=== PATIENT | male | born 1950 | race Caucasian/White ===

== ENCOUNTER 2018-03-10 21:44 | Inpatient (IN) ==
[2018-03-10] MEDS ORDERED: Etomidate Inj 40 MG/20 ML Vial IV.PUSH ONE (21:45)
[2018-03-10] MEDS ORDERED: Succinylcholine Inj 200 MG/10 ML Vial ONE (21:46)
[2018-03-10] MEDS ORDERED: Etomidate Inj 20 MG/10 ML Ampul IV.PUSH ONE (21:57)
[2018-03-10] MEDS ORDERED: Succinylcholine Inj 100 MG/5 ML Syringe IV.PUSH ONE (21:57)
[2018-03-10] MEDS ORDERED: Sod Chloride 0.9% Inj 1,000 ML IV.SIG SCH (22:00)
[2018-03-10 22:11] LABS: ABG Base Excess 2.6 mmol/L (-2-2); ABG PCO2 59 mmHg (38-42); ABG PO2 552 mmHg (61-120)
[2018-03-10 22:17] LABS: Baso % (Auto) 0.8 % (0.0-2.0); Eos # (Auto) 0.3 th/mm3 (0.0-0.4); Eos % (Auto) 5.7 % (0.0-4.0); Hemoglobin 15.4 gm/dL (13.0-17.0); Lymph # (Auto) 2.3 th/mm3 (1.0-4.8); Lymph % (Auto) 37.4 % (9.0-44.0); Mean Corpuscular HGB Conc 32.7 % (32.0-36.0); Mean Corpuscular Volume 91.6 fL (80.0-100.0); Mean Platelet Volume 9.1 fL (7.0-11.0); Mono # (Auto) 0.5 th/mm3 (0.0-0.9); Mono % (Auto) 8.4 % (0.0-8.0); Neut # (Auto) 2.9 th/mm3 (1.8-7.7); Neut % (Auto) 47.7 % (16.0-70.0); Platelet Count 126 th/mm3 (150-450); Red Blood Count 5.13 mil/mm3 (4.50-5.90); Red Cell Distribution Width 13.6 % (11.6-17.2); White Blood Count 6.1 th/mm3 (4.0-11.0)
--- NOTE | 2018-03-10 22:18 | ED ---
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 (0.02-0.05) ng/mL Total Protein 6.4 (6.4-8.2) g/dL Albumin 3.1 L (3.4-5.0) g/dL Urine Color (Yellw/Straw) Urine Clarity (Clear) Urine pH (5.0-8.5) Ur Specific [place] (1.002-1.035) Urine Protein (Neg-Trace) mg/dL Urine Glucose (UA) (Negative) mg/dL Urine Ketones (Negative) mg/dL Urine Occult Blood (Negative) Urine Nitrate (Negative) Urine Bilirubin (Negative) Urine Urobilinogen (Less than 2) mg/dL Ur Leukocyte Esterase (Negative) Urine RBC (0-3) /hpf Urine WBC (0-5) /hpf Ur Squamous Epith Cells (0-5) /hpf Urine Bacteria (None) /hpf Urine Mucus (Occasional) /lpf Micro UA Comment Ur Microscopic Review Urine Culture Comments Nasal Screen MRSA (PCR) (Negative) Urine Opiates Screen (Neg) Ur Barbiturates Screen (Neg) Ur Amphetamines Screen (Neg) U Benzodiazepines Scrn (Neg) Urine Cocaine Screen (Neg) U Cannabinoids Screen (Neg) 03/12/18 03/12/18 03/12/18 Range/Units 10:00 13:26 18:47 WBC (4.0-11.0) th/mm3 RBC (4.50-5.90) mil/mm3 Hgb (13.0-17.0) gm/dL Hct (39.0-51.0) % MCV (80.0-100.0) fL MCH (27.0-34.0) pg MCHC (32.0-36.0) % RDW (11.6-17.2) % Plt Count (150-450) th/mm3 MPV (7.0-11.0) fL Neut % (Auto) (16.0-70.0) % Lymph % (Auto) (9.0-44.0) % Cochran % (Auto) (0.0-8.0) % Eos % (Auto) (0.0-4.0) % Baso % (Auto) (0.0-2.0) % Neut # (Auto) (1.8-7.7) th/mm3 Lymph # (Auto) (1.0-4.8) th/mm3 Cochran # (Auto) (0.0-0.9) th/mm3 Eos # (Auto) (0.0-0.4) th/mm3 Baso # (Auto) (0.0-0.2) th/mm3 WBC Differential Differential Comment PT (9.8-11.6) sec INR Ratio APTT (24.3-30.1) sec Puncture Site Right radial Patient Temperature 98.6 O2 Saturation 96 (90-100) % ABG pH 7.34 L (7.380-7.420) ABG pCO2 51 H* (38-42) mmHg ABG pO2 117 (61-120) mmHg ABG HCO3 27 H (22-26) mmol/L ABG O2 Content 20.3 H (12.0-20.0) Vol % ABG Base Excess 1.4 (-2-2) mmol/L ABG Methemoglobin 1.5 (0-2) % Cj Test Present Hemoglobin 14.9 (12.0-16.0) G/DL Carboxyhemoglobin 0.6 (0-4) % O2 Delivery Device Ventilator Vent Setting Cpap+5/ps+5 Inspired O2 40 % Critical Value Yes Sodium (136-145) meq/L Potassium (3.5-5.1) meq/L Chloride (98-107) meq/L Carbon Dioxide (21.0-32.0) meq/L Anion Gap (5-15) meq/L BUN (7-18) mg/dL Creatinine (0.60-1.30) mg/dL Estimated GFR (>89) mL/min POC Glucose 210 H 215 H (68-110) mg/dl Random Glucose (74-106) mg/dL Lactic Acid (0.4-2.0) mmol/L Calcium (8.5-10.1) mg/dL Phosphorus (2.5-4.9) mg/dL Magnesium (1.5-2.5) mg/dL Total Bilirubin (0.2-1.0) mg/dL AST (15-37) U/L ALT (12-78) U/L Alkaline Phosphatase (45-117) U/L Ammonia (11-32) mcmol/L Total Creatine Kinase (39-308) U/L Troponin I (0.02-0.05) ng/mL Total Protein (6.4-8.2) g/dL Albumin (3.4-5.0) g/dL Urine Color (Yellw/Straw) Urine Clarity (Clear) Urine pH (5.0-8.5) Ur Specific [place] (1.002-1.035) Urine Protein (Neg-Trace) mg/dL Urine Glucose (UA) (Negative) mg/dL Urine Ketones (Negative) mg/dL Urine Occult Blood (Negative) Urine Nitrate (Negative) Urine Bilirubin (Negative) Urine Urobilinogen (Less than 2) mg/dL Ur Leukocyte Esterase (Negative) Urine RBC (0-3) /hpf Urine WBC (0-5) /hpf Ur Squamous Epith Cells (0-5) /hpf Urine Bacteria (None) /hpf Urine Mucus (Occasional) /lpf Micro UA Comment Ur Microscopic Review Urine Culture Comments Nasal Screen MRSA (PCR) (Negative) Urine Opiates Screen (Neg) Ur Barbiturates Screen (Neg) Ur Amphetamines Screen (Neg) U Benzodiazepines Scrn (Neg) Urine Cocaine Screen (Neg) U Cannabinoids Screen (Neg) 03/12/18 Range/Units 23:39 WBC (4.0-11.0) th/mm3 RBC (4.50-5.90) mil/mm3 Hgb (13.0-17.0) gm/dL Hct (39.0-51.0) % MCV (80.0-100.0) fL MCH (27.0-34.0) pg MCHC (32.0-36.0) % RDW (11.6-17.2) % Plt Count (150-450) th/mm3 MPV (7.0-11.0) fL Neut % (Auto) (16.0-70.0) % Lymph % (Auto) (9.0-44.0) % Cochran % (Auto) (0.0-8.0) % Eos % (Auto) (0.0-4.0) % Baso % (Auto) (0.0-2.0) % Neut # (Auto) (1.8-7.7) th/mm3 Lymph # (Auto) (1.0-4.8) th/mm3 Co[place]ran # (Auto) (0.0-0.9) th/mm3 Eos # (Auto) (0.0-0.4) th/mm3 Baso # (Auto) (0.0-0.2) th/mm3 WBC Differential Differential Comment PT (9.8-11.6) sec INR Ratio APTT (24.3-30.1) sec Puncture Site Patient Temperature O2 Saturation (90-100) % ABG pH (7.380-7.420) ABG pCO2 (38-42) mmHg ABG pO2 (61-120) mmHg ABG HCO3 (22-26) mmol/L ABG O2 Content (12.0-20.0) Vol % ABG Base Excess (-2-2) mmol/L ABG Methemoglobin (0-2) % Cj Test Hemoglobin (12.0-16.0) G/DL Carboxyhemoglobin (0-4) % O2 Delivery Device Vent Setting Inspired O2 % Critical Value Sodium (136-145) meq/L Potassium (3.5-5.1) meq/L Chloride (98-107) meq/L Carbon Dioxide (21.0-32.0) meq/L Anion Gap (5-15) meq/L BUN (7-18) mg/dL Creatinine (0.60-1.30) mg/dL Estimated GFR (>89) mL/min POC Glucose 209 H (68-110) mg/dl Random Glucose (74-106) mg/dL Lactic Acid (0.4-2.0) mmol/L Calcium (8.5-10.1) mg/dL Phosphorus (2.5-4.9) mg/dL Magnesium (1.5-2.5) mg/dL Total Bilirubin (0.2-1.0) mg/dL AST (15-37) U/L ALT (12-78) U/L Alkaline Phosphatase (45-117) U/L Ammonia (11-32) mcmol/L Total Creatine Kinase (39-308) U/L Troponin I (0.02-0.05) ng/mL Total Protein (6.4-8.2) g/dL Albumin (3.4-5.0) g/dL Urine Color (Yellw/Straw) Urine Clarity (Clear) Urine pH (5.0-8.5) Ur Specific [place] (1.002-1.035) Urine Protein (Neg-Trace) mg/dL Urine Glucose (UA) (Negative) mg/dL Urine Ketones (Negative) mg/dL Urine Occult Blood (Negative) Urine Nitrate (Negative) Urine Bilirubin (Negative) Urine Urobilinogen (Less than 2) mg/dL Ur Leukocyte Esterase (Negative) Urine RBC (0-3) /hpf Urine WBC (0-5) /hpf Ur Squamous Epith Cells (0-5) /hpf Urine Bacteria (None) /hpf Urine Mucus (Occasional) /lpf Micro UA Comment Ur Microscopic Review Urine Culture Comments Nasal Screen MRSA (PCR) (Negative) Urine Opiates Screen (Neg) Ur Barbiturates Screen (Neg) Ur Amphetamines Screen (Neg) U Benzodiazepines Scrn (Neg) Urine Cocaine Screen (Neg) U Cannabinoids Screen (Neg) Imaging Data Radiologist's impression: Chest X-Ray 03/10/18 21:53 CONCLUSION: Endotracheal tube in good position. Mild basilar atelectasis. Head CT 03/10/18 21:57 CONCLUSION: 1. No acute intracranial abnormality. . Chest X-Ray 03/12/18 00:00 CONCLUSION: 1. Stable ETT and NGT. 2. Mild bibasilar airspace disease, presumably atelectasis. Chest X-Ray 03/13/18 05:00 CONCLUSION: Mild suspected atelectasis or consolidation at the right base. ECG Data Attestation: I personally reviewed and interpreted this ECG as follows: Interpretation: Twelve-lead EKG was reviewed by me. Normal sinus rhythm, left axis deviation questionable old inferior AK, interventricular conduction delay, first-degree AV block. Heart rate of 89 bpm per Discharge Plan Discharge Disposition Patient Disposition: 30 Still Patient Physicians Team ED Provider: Gila Jett Primary Care Provider: UNKNOWN, Attending Provider: Bk [place]amo Other Providers: Allan Cornell Status ED Status: Left Department Discharge Information Discharge Date/Time: 03/11/18 01:39
[2018-03-10 22:22] LABS: Bacteria,Urine Occasional /hpf; Bilirubin,Urine Negative (Negative); Clarity,Urine Clear (Clear); Color,Urine Straw (Yellw/Straw); Glucose,Urine (UA) 500 or Greater mg/dL (Negative); Leukocyte Esterase,Urine Negative (Negative); Mucus,Urine Few /lpf (Occasional); Nitrite,Urine Negative (Negative); Specific Gravity,Urine 1.003 (1.002-1.035); Squamous Epithelial Cell,Urine <1 /hpf (0-5)
[2018-03-10] MEDS: Propofol 1000 mg/100 ml Inj 1,000 MG/100 ML BOTTLE IV.CONT PRN (22:24)
[2018-03-10 22:29] LABS: Amphetamine Screen,Urine Neg (Neg); Barbiturate Screen,Urine Neg (Neg); Cannabinoid Screen,Urine Pos (Neg); Cocaine Screen,Urine Neg (Neg)
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
[2018-03-10 22:31] LABS: Albumin 3.3 g/dL (3.4-5.0); Anion Gap 8 meq/L (5-15); Aspartate Aminotransferase 20 U/L (15-37); Blood Urea Nitrogen 13 mg/dL (7-18); Calcium 8.2 mg/dL (8.5-10.1); Carbon Dioxide 31.1 meq/L (21.0-32.0); Chloride 92 meq/L (98-107); Glomerular Filtration Rate 44 mL/min (>89); Glucose,Random 289 mg/dL (74-106); Magnesium 1.8 mg/dL (1.5-2.5); Potassium 4.1 meq/L (3.5-5.1); Sodium 131 meq/L (136-145)
[2018-03-10 22:32] LABS: Alanine Aminotransferase 24 U/L (12-78)
[2018-03-10 22:35] LABS: Alkaline Phosphatase 150 U/L (45-117)
[2018-03-10 22:46] LABS: Opiate Screen,Urine Neg (Neg)
[2018-03-10] MEDS ORDERED: Lidocaine PF 1% Inj 30 ML Vial ONE (22:46)
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
[2018-03-10 23:05] LABS: ABG Base Excess 2.3 mmol/L (-2-2); ABG PCO2 51 mmHg (38-42); ABG PO2 579 mmHg (61-120)
[2018-03-10] MEDS ORDERED: Midazolam Inj 5 MG/ML 1 ML Vial ONE (23:14)
[2018-03-10] MEDS ORDERED: fentaNYL Citrate Inj 100 MCG/2 ML Ampul ONE (23:14)
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
[2018-03-11] MEDS ORDERED: Bisacodyl 10 MG Supp RECTAL PRN (00:28)
[2018-03-11] MEDS ORDERED: Morphine Inj 4 MG/ML Vial IV.PUSH PRN (00:28)
[2018-03-11] MEDS ORDERED: Acetaminophen 325 MG Tablet PO PRN (00:28)
[2018-03-11] MEDS ORDERED: Magnesium Oxide 400 MG Tablet PO PRN (01:10)
[2018-03-11] MEDS ORDERED: Sodium Phosphate Inj 30 MMOL in Sodium Chlor 0.9% Inj 250 ML IV.SIG PRN (01:10)
[2018-03-11] MEDS ORDERED: Magnesium Sulfate Inj 4 GM in Sodium Chlor 0.9% Inj 92 ML IV.SIG PRN (01:10)
[2018-03-11] MEDS ORDERED: Potassium Chlor 20 mEq Premix 20 MEQ/100 ML PIGGYBACK IV.SIG PRN ×2 (01:10)
[2018-03-11] MEDS ORDERED: Potassium Phosphate Inj 30 MMOL in Sodium Chlor 0.9% Inj 250 ML IV.SIG PRN (01:10)
[2018-03-11] MEDS ORDERED: Potassium Chlor 40 mEq Premix 40 MEQ/100 ML PIGGYBACK IV.SIG PRN ×2 (01:10)
[2018-03-11] MEDS ORDERED: Magnesium Sulfate Inj 2 GM in Sodium Chlor 0.9% Inj 96 ML IV.SIG PRN (01:10)
[2018-03-11] MEDS ORDERED: Potassium Phosphate 500 MG Soluble Tablet PO PRN ×2 (01:10)
[2018-03-11] MEDS ORDERED: Potassium Chloride 25 MEQ Effervescent Tablet PO PRN (01:10)
[2018-03-11] MEDS: Sod Chloride 0.9% Inj 1,000 ML IV.CONT SCH ×2 (01:16→12:34)
[2018-03-11] MEDS: Enoxaparin Inj 40 MG/0.4 ML Syringe SQ SCH ×2 (02:42→23:55)
[2018-03-11] MEDS: Oral Hygiene Kit OROPHARYNG SCH ×4 (03:27→23:55)
[2018-03-11] MEDS: Chlorhexidine Gluconate 2% 1 Pack (2 Cloths) TOPICAL SCH (03:27)
[2018-03-11] MEDS: Propofol 1000 mg/100 ml Inj 1,000 MG/100 ML BOTTLE IV.CONT PRN ×5 (03:27→21:13)
[2018-03-11] MEDS ORDERED: Chlorhexidine Gluconate 2% 1 Pack (2 Cloths) TOPICAL PRN (04:00)
[2018-03-11] MEDS ORDERED: Dextrose 50% in Water 50 ML Vial IV.PUSH PRN (04:52)
[2018-03-11] MEDS: Insulin NovoLOG Aspart Correctional Sugar Inj SQ SCH ×4 (05:38→23:55)
[2018-03-11 07:13] LABS: Baso % (Auto) 0.5 % (0.0-2.0); Eos # (Auto) 0.3 th/mm3 (0.0-0.4); Eos % (Auto) 3.7 % (0.0-4.0); Hematocrit 43.5 % (39.0-51.0); Hemoglobin 14.6 gm/dL (13.0-17.0); Lymph # (Auto) 1.3 th/mm3 (1.0-4.8); Lymph % (Auto) 18.5 % (9.0-44.0); Mean Corpuscular HGB Conc 33.6 % (32.0-36.0); Mean Corpuscular Hemoglobin 30.3 pg (27.0-34.0); Mean Corpuscular Volume 90.1 fL (80.0-100.0); Mean Platelet Volume 8.9 fL (7.0-11.0); Mono # (Auto) 0.5 th/mm3 (0.0-0.9); Mono % (Auto) 7.8 % (0.0-8.0); Neut # (Auto) 4.7 th/mm3 (1.8-7.7); Neut % (Auto) 69.5 % (16.0-70.0); Platelet Count 111 th/mm3 (150-450); Red Blood Count 4.82 mil/mm3 (4.50-5.90); Red Cell Distribution Width 13.6 % (11.6-17.2); White Blood Count 6.8 th/mm3 (4.0-11.0)
[2018-03-11 07:50] LABS: Alanine Aminotransferase 22 U/L (12-78); Alkaline Phosphatase 141 U/L (45-117); Anion Gap 9 meq/L (5-15); Aspartate Aminotransferase 18 U/L (15-37); Blood Urea Nitrogen 11 mg/dL (7-18); Calcium 7.8 mg/dL (8.5-10.1); Carbon Dioxide 26.1 meq/L (21.0-32.0); Chloride 101 meq/L (98-107); Glomerular Filtration Rate 56 mL/min (>89); Glucose,Random 210 mg/dL (74-106); Magnesium 1.6 mg/dL (1.5-2.5); Phosphorus 2.1 mg/dL (2.5-4.9); Potassium 3.3 meq/L (3.5-5.1); Sodium 136 meq/L (136-145); Total Protein 6.2 g/dL (6.4-8.2)
[2018-03-11] MEDS: Famotidine PF Inj 20 MG/2 ML Vial IV.PUSH SCH ×2 (08:17→20:03)
[2018-03-11] MEDS: Senna/Docusate Sodium 8.6/50 MG Tablet PO SCH ×2 (08:17→20:03)
[2018-03-11] MEDS: Chlorhexidine 0.12% Oral Kit 15 ML UDC OROPHARYNG SCH ×2 (08:18→20:03)
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
--- NOTE | 2018-03-11 21:57 | ECG ---
Date Performed: 03/11/2018 Time Performed: 09:04:27 PTAGE: 89 years EKG: SINUS BRADYCARDIA WITH FIRST DEGREE AV BLOCK WITH OCCASIONAL VENTRICULAR PREMATURE COMPLEXE S MARKED LEFT AXIS DEVIATION RIGHT BUNDLE BRANCH BLOCK ABNORMAL ECG PREVIOUS TRACING : 03/10/2018 21.53 Since the previous tracing, no significant change noted DOCTOR: Halle Ohara Interpretating Date/Time 03/11/2018 21:57:17
--- NOTE | 2018-03-11 22:17 | ECG ---
Date Performed: 03/10/2018 Time Performed: 21:53:25 PTAGE: 89 years EKG: Sinus rhythm WITH FIRST DEGREE AV BLOCK MARKED RIGHT AXIS DEVIATION RIGHT BUNDLE BRANCH BLOCK POSSIBLE ANTERIOR M YOCARDIAL INFARCTION INFERIOR MYOCARDIAL INFARCTION ABNORMAL ECG NO PREVIOUS TRACING DOCTOR: Halle Ohara Interpretating Date/Time 03/11/2018 22:15:06
[2018-03-12] MEDS: Sod Chloride 0.9% Inj 1,000 ML IV.CONT SCH ×2 (00:22→12:15)
[2018-03-12] MEDS: Propofol 1000 mg/100 ml Inj 1,000 MG/100 ML BOTTLE IV.CONT PRN ×2 (01:00→04:00)
[2018-03-12] MEDS: Chlorhexidine Gluconate 2% 1 Pack (2 Cloths) TOPICAL SCH (03:04)
[2018-03-12] MEDS: Oral Hygiene Kit OROPHARYNG SCH ×4 (03:04→23:13)
[2018-03-12 04:52] LABS: Baso % (Auto) 0.4 % (0.0-2.0); Eos # (Auto) 0.2 th/mm3 (0.0-0.4); Eos % (Auto) 2.9 % (0.0-4.0); Hemoglobin 15.2 gm/dL (13.0-17.0); Lymph # (Auto) 0.8 th/mm3 (1.0-4.8); Mean Corpuscular HGB Conc 33.1 % (32.0-36.0); Mean Corpuscular Hemoglobin 29.9 pg (27.0-34.0); Mean Corpuscular Volume 90.5 fL (80.0-100.0); Mean Platelet Volume 9.6 fL (7.0-11.0); Mono # (Auto) 0.5 th/mm3 (0.0-0.9); Mono % (Auto) 7.1 % (0.0-8.0); Neut # (Auto) 5.8 th/mm3 (1.8-7.7); Neut % (Auto) 78.6 % (16.0-70.0); Platelet Count 122 th/mm3 (150-450); Red Blood Count 5.08 mil/mm3 (4.50-5.90); Red Cell Distribution Width 13.7 % (11.6-17.2); White Blood Count 7.4 th/mm3 (4.0-11.0)
[2018-03-12 05:04] LABS: Activated Partial Thrombo Time 36.5 sec (24.3-30.1); Prothrombin Time 10.2 sec (9.8-11.6)
[2018-03-12 05:18] LABS: Alanine Aminotransferase 21 U/L (12-78); Albumin 3.1 g/dL (3.4-5.0); Anion Gap 8 meq/L (5-15); Aspartate Aminotransferase 32 U/L (15-37); Blood Urea Nitrogen 8 mg/dL (7-18); Calcium 7.8 mg/dL (8.5-10.1); Carbon Dioxide 25.9 meq/L (21.0-32.0); Chloride 104 meq/L (98-107); Glomerular Filtration Rate 60 mL/min (>89); Glucose,Random 233 mg/dL (74-106); Magnesium 1.9 mg/dL (1.5-2.5); Sodium 138 meq/L (136-145)
[2018-03-12 05:23] LABS: Alkaline Phosphatase 164 U/L (45-117); Phosphorus 2.2 mg/dL (2.5-4.9); Total Protein 6.4 g/dL (6.4-8.2)
[2018-03-12] MEDS: Insulin NovoLOG Aspart Correctional Sugar Inj SQ SCH ×4 (05:23→23:41)
[2018-03-12] MEDS ORDERED: Sodium Glycerophosphate Inj 30 MMOL in Sodium Chlor 0.9% Inj 250 ML IV.SIG PRN (06:45)
--- NOTE | 2018-03-12 07:58 | XR ---
EXAM DATE: 03/12/2018 12:00 AM EDT AGE/SEX: 89 years / Male INDICATIONS: Respiratory distress. CLINICAL DATA: This is the patient's subsequent encounter. Patient reports that signs and symptoms h ave been present for 2 days and indicates a pain score of Nonresponsive. MEDICAL/SURGICAL HISTORY: Non-responsive. Non-responsive. COMPARISON: C, CHEST 1V SINGLE AP, 03/10/2018. . FINDINGS: Stable ETT and NGT coursing beyond the GE junction with tip obscured from the image. Persistent mild bibasilar airspace disease. Cardiomediastinal contours are within normal limits. Remainder of the exa m is unchanged. CONCLUSION: 1. Stable ETT and NGT. 2. Mild bibasilar airspace disease, presumably atelectasis. Electronically signed by: Phoenix Gordon MD 03/12/2018 7:57 AM EDT
[2018-03-12] MEDS: Famotidine PF Inj 20 MG/2 ML Vial IV.PUSH SCH ×2 (10:22→20:17)
[2018-03-12] MEDS: Senna/Docusate Sodium 8.6/50 MG Tablet PO SCH ×2 (10:25→20:18)
[2018-03-12] MEDS: Chlorhexidine 0.12% Oral Kit 15 ML UDC OROPHARYNG SCH ×2 (10:25→20:04)
[2018-03-12] MEDS ORDERED: Labetalol HCl Inj 100 MG/20 ML Vial ONE (12:24)
[2018-03-12 13:26] LABS: ABG Base Excess 1.4 mmol/L (-2-2); ABG PCO2 51 mmHg (38-42); ABG PO2 117 mmHG (61-120)
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
[2018-03-12] MEDS: clonazePAM 0.5 MG Tablet PO PRN (14:53)
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
[2018-03-12] MEDS: Enoxaparin Inj 40 MG/0.4 ML Syringe SQ SCH (23:41)
[2018-03-13] MEDS: Chlorhexidine Gluconate 2% 1 Pack (2 Cloths) TOPICAL SCH (03:24)
[2018-03-13] MEDS: Oral Hygiene Kit OROPHARYNG SCH ×3 (03:24→17:27)
--- NOTE | 2018-03-13 04:54 | XR ---
EXAM DATE: 03/13/2018 5:00 AM EDT AGE/SEX: 67 years / Male INDICATIONS: Short of breath. CLINICAL DATA: This is the patient's subsequent encounter. Patient reports that signs and symptoms h ave been present for 3 days and indicates a pain score of 0/10. MEDICAL/SURGICAL HISTORY: Non-responsive. Non-responsive. COMPARISON: [facility] [place], CHEST 1V SINGLE AP, 03/12/2018. . FINDINGS: The heart size is normal. There is mild increased density at the medial right base. The left lung roopa ears clear. The costophrenic angles are clear. CONCLUSION: Mild suspected atelectasis or consolidation at the right base. Electronically signed by: Jacob Dunn MD 03/13/2018 4:53 AM EDT
[2018-03-13] MEDS: Insulin NovoLOG Aspart Correctional Sugar Inj SQ SCH ×3 (05:54→17:38)
[2018-03-13] MEDS: Sod Chloride 0.9% Inj 1,000 ML IV.CONT SCH ×2 (05:54→12:25)
[2018-03-13] MEDS: Chlorhexidine 0.12% Oral Kit 15 ML UDC OROPHARYNG SCH ×2 (08:25→20:11)
[2018-03-13] MEDS: Senna/Docusate Sodium 8.6/50 MG Tablet PO SCH ×2 (08:25→20:12)
[2018-03-13] MEDS: Famotidine PF Inj 20 MG/2 ML Vial IV.PUSH SCH (08:26)
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
[2018-03-13] MEDS ORDERED: Sod Chloride 0.9% Inj 1,000 ML IV.CONT SCH (19:00)
[2018-03-13] MEDS: amLODIPine 10 MG Tablet PO SCH (20:11)
[2018-03-14] MEDS: Enoxaparin Inj 40 MG/0.4 ML Syringe SQ SCH (00:19)
[2018-03-14] MEDS: Insulin NovoLOG Aspart Correctional Sugar Inj SQ SCH ×4 (00:19→17:48)
[2018-03-14] MEDS: Oral Hygiene Kit OROPHARYNG SCH ×4 (00:19→17:46)
[2018-03-14] MEDS: Chlorhexidine Gluconate 2% 1 Pack (2 Cloths) TOPICAL SCH (05:20)
[2018-03-14] MEDS: Chlorhexidine 0.12% Oral Kit 15 ML UDC OROPHARYNG SCH ×2 (08:10→20:44)
[2018-03-14] MEDS: Senna/Docusate Sodium 8.6/50 MG Tablet PO SCH ×2 (08:37→20:44)
[2018-03-14] MEDS: amLODIPine 10 MG Tablet PO SCH (08:37)
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
--- NOTE | 2018-03-14 10:58 | CT ---
EXAM DATE: 03/14/2018 9:04 AM EDT AGE/SEX: 67 years / Male INDICATIONS: Unequal pupils, bleed. CLINICAL DATA: This is the patient's initial encounter. Patient reports that signs and symptoms have been present for 1 day and indicates a pain score of 0/10. MEDICAL/SURGICAL HISTORY: Hypertension. Cardiovascular disease. None. RADIATION DOSE: 35.94 CTDI (mGy) COMPARISON: [facility] – [place], CT HEAD W/O CONTRAST, 03/10/2018. . TECHNIQUE: CT of the head without contrast. Using automated exposure control and adjustment of the mA and/or kV according to patient size, radiation dose was kept as low as reasonably achievable to ob tain optimal diagnostic quality images. DICOM format image data is available electronically for revi ew and comparison. FINDINGS: Cerebrum: The ventricles are normal for age. There is stable bilateral cortical atrophy. No evidence of midline shift, mass lesion, hemorrhage or acute infarction. No extraaxial fluid collections are seen. Posterior Fossa: The cerebellum and brainstem are intact. The 4th ventricle is midline. The cerebe llopontine angle is unremarkable. Extracranial: The visualized portion of the orbits is intact. There is an air-fluid level in the lef t sphenoid sinus and left maxillary sinus. Skull: The calvaria is intact. No evidence of skull fracture. CONCLUSION: 1. Unremarkable and stable CT scan of the brain for patient's age compared to the prior study. 2. Air-fluid level in the left sphenoid sinus and left maxillary sinus suggestive of sinus disease. . Electronically signed by: Eleazar Cortes MD 03/14/2018 10:57 AM EDT
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
--- NOTE | 2018-03-14 11:13 | CT ---
EXAM DATE: 03/14/2018 10:15 AM EDT AGE/SEX: 67 years / Male INDICATIONS: Unequal pupils, bleed. CLINICAL DATA: This is the patient's initial encounter. Patient reports that signs and symptoms have been present for 1 day and indicates a pain score of 0/10. MEDICAL/SURGICAL HISTORY: Cardiovascular disease. Hypertension. None. RADIATION DOSE: 28.34 CTDI (mGy) ; Combined studies COMPARISON: No prior exams available for comparison. TECHNIQUE: Volumetric scanning was performed using a multirow detector CT scanner during bolus infus ion of 100 ml Omnipaque 350 (iohexol) nonionic water-soluble contrast as a cumulative dose for multi ple exams. The data was postprocessed with a variety of visualization algorithms including full-vol ume maximum intensity projection, multiplanar sliding thin-slab reformation, curved-planar reformatio n, and surface-rendering techniques. Using automated exposure control and adjustment of the mA and/o r kV according to patient size, radiation dose was kept as low as reasonably achievable to obtain opt imal diagnostic quality images. DICOM format image data is available electronically for review and c omparison. Percent stenosis is calculated using the diameter of the stenotic region over the diameter of the nor mal distal internal carotid artery. FINDINGS: Aortic Arch: There is a three-vessel origin of the great vessels from the aorta. Atherosclerotic mouna cifications extending from the arch to the origin of the arch vessels without significant flow-limiti ng stenosis. Right Carotid: The common carotid artery is intact. Eccentric calcified plaque extending from the d istal carotid bulb to the origin of the internal carotid artery with resultant less than 10% stenosis . Internal carotid artery is otherwise patent to the skull base. The external carotid artery is intac t. Left Carotid: The common carotid artery is intact. Eccentric calcified plaque extending from the javier y distal carotid bulb to the origin of the internal carotid artery with resultant 45-50% stenosis. Se cond eccentric calcified plaque slightly more distally in the proximal internal carotid artery with r esultant tandem up to 20% stenosis. Internal carotid arteries otherwise patent to the skull base. The external carotid artery is intact. Vertebrals: The vertebral arteries have a symmetric diameter. No stenotic lesions are seen. General Findings: Mild centrilobular emphysema in the lung apices. Thyroid is unremarkable by CT. No significant adenopathy. CONCLUSION: 1. Less than 10% stenosis of the right internal carotid artery secondary to eccentric calcified plaq ue. 2. Tandem 45-50% and up to 20% stenosis of the left internal carotid artery secondary to eccentric c alcified plaque. 3. Patent bilateral vertebral arteries. Electronically signed by: Phoenix Gordon MD 03/14/2018 11:11 AM EDT
[2018-03-14] MEDS ORDERED: Promethazine/Codeine Liq 6.25 MG/10 MG 5 ML UDC PO ONE (11:30)
[2018-03-14 12:45] LABS: Calcium 8.6 mg/dL (8.5-10.1); Carbon Dioxide 30.8 meq/L (21.0-32.0); Potassium 3.1 meq/L (3.5-5.1)
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
--- NOTE | 2018-03-14 20:14 | MR ---
EXAM DATE: 03/14/2018 7:11 PM EDT AGE/SEX: 67 years / Male INDICATIONS: CVA. Vision changes. CLINICAL DATA: This is the patient's subsequent encounter. Patient reports that signs and symptoms h ave been present for 4 - 6 days and indicates a pain score of 0/10. MEDICAL/SURGICAL HISTORY: Hypertension. Diabetes. Coronary artery stent. Bilateral shoulder dunn rgery. Bilateral knee surgery. COMPARISON: No prior exams available for comparison. TECHNIQUE: Multiplanar, multisequence examination of the brain was performed without contrast. FINDINGS: There is no intracranial mass or midline shift. No hydrocephalus. No recent infarction identified on the diffusion weighted images. There is an air-fluid level in the septated left sphenoid sinus characteristic of sphenoid sinusitis. Also trace fluid in the left maxillary sinus. CONCLUSION: 1. No acute intracranial abnormalities. No recent infarct. 2. Left-sided sphenoid and maxillary sinusitis. Electronically signed by: Kelechi Millard MD 03/14/2018 8:13 PM EDT
--- NOTE | 2018-03-14 20:53 | MR ---
EXAM DATE: 03/14/2018 7:11 PM EDT AGE/SEX: 67 years / Male INDICATIONS: . Abnormal gait. CLINICAL DATA: This is the patient's subsequent encounter. Patient reports that signs and symptoms h ave been present for 4 - 6 days and indicates a pain score of 3/10. MEDICAL/SURGICAL HISTORY: Hypertension. Diabetes. Coronary artery stent. Bilateral shoulder dunn rgery. Bilateral knee surgery. COMPARISON: No prior exams available for comparison. TECHNIQUE: Multiplanar, multisequence MRI examination of the cervical spine was performed without co ntrast. FINDINGS: At C2-3-4 there is no significant abnormality. At C4-5 there is a broad-based disc protrusion with mild AP canal stenosis and mild bilateral foramin al stenosis. At C5-6-7 there is posterior osteophytic ridging with partial effacement of the thecal sac around the cord. At C7-T1 there is no significant abnormality. CONCLUSION: 1. At C4-5 a broad-based disc protrusion results in mild AP canal stenosis and effacement of the the mouna sac around the cord with a mild impression on the anterior surface of the cord. 2. At C5-6-7 there is degenerative change with some osteophytic ridging effacing the thecal sac. 3. Alignment within normal limits. No acute fracture. No cord signal abnormality. Electronically signed by: Kelechi Millard MD 03/14/2018 8:51 PM EDT
[2018-03-14] MEDS: clonazePAM 0.5 MG Tablet PO PRN (20:56)
[2018-03-15] MEDS: Insulin NovoLOG Aspart Correctional Sugar Inj SQ SCH ×4 (00:16→18:48)
[2018-03-15] MEDS: Oral Hygiene Kit OROPHARYNG SCH ×4 (00:16→18:23)
[2018-03-15] MEDS: Chlorhexidine Gluconate 2% 1 Pack (2 Cloths) TOPICAL SCH (03:42)
[2018-03-15] MEDS: amLODIPine 10 MG Tablet PO SCH (10:17)
[2018-03-15] MEDS: Chlorhexidine 0.12% Oral Kit 15 ML UDC OROPHARYNG SCH ×2 (10:18→22:42)
[2018-03-15] MEDS: Lisinopril 5 MG Tablet PO SCH (10:19)
[2018-03-15] MEDS: Senna/Docusate Sodium 8.6/50 MG Tablet PO SCH ×2 (10:19→20:56)
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
--- NOTE | 2018-03-15 14:42 | XR ---
EXAM DATE: 03/15/2018 2:32 PM EDT AGE/SEX: 67 years / Male INDICATIONS: Short of breath. CLINICAL DATA: This is the patient's initial encounter. Patient reports that signs and symptoms have been present for 4 - 6 days and indicates a pain score of 0/10. MEDICAL/SURGICAL HISTORY: Cardiovascular disease. Hypertension. Chronic obstructive pulmonary disease. copd None. COMPARISON: [facility] [place], CHEST 1V SINGLE AP, 03/13/2018. . FINDINGS: A single AP view of the chest demonstrates the lungs to be symmetrically aerated without evidence of mass, infiltrate or effusion. The cardiomediastinal contours are unremarkable. Osseous structures a re intact. CONCLUSION: No acute cardiopulmonary process. Electronically signed by: Delroy Mercedes MD 03/15/2018 2:41 PM EDT
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
[2018-03-15 15:46] LABS: Calcium 8.4 mg/dL (8.5-10.1); Carbon Dioxide 25.1 meq/L (21.0-32.0)
--- NOTE | 2018-03-15 18:43 | P.PNNEU ---
Subjective Subjective Comments: no matta, no vision loss, no cp, no dyspnea Active Medications: Active Medications Acetaminophen (Tylenol) 650 mg PO Q6H PRN PRN Reason: PAIN 1-10 AND/OR FEVER >101F Hydrocodone Bitart/Acetaminophen ([place] 5/325) 1 tab PO Q6H PRN PRN Reason: PAIN SCALE 1 TO 5 Last Admin: 03/15/18 12:21 Dose: 1 tab Al Hydroxide/Mg Hydroxide (Milk Of Magnginger Liq) 30 ml PO Q12H PRN PRN Reason: Mild Constipation Albuterol (Duoneb Neb (Prn)) 1 ampul NEB Q2HR NEB PRN PRN Reason: WHEEZING Last Admin: 03/15/18 10:37 Dose: 1 ampul Albuterol (Duoneb Neb (Laurie)) 1 ampul NEB Q6HR NEB LAURIE Last Admin: 03/15/18 16:04 Dose: Not Given Amlodipine Besylate (Norvasc) 10 mg PO DAILY [facility] Last Admin: 03/15/18 10:17 Dose: 10 mg Atorvastatin Calcium (Lipitor) 40 mg PO HS [facility] Last Admin: 03/14/18 20:44 Dose: 40 mg Bisacodyl (Dulcolax Supp) 10 mg RECTAL DAILY PRN PRN Reason: SEVERE CONSITIPATION Budesonide/Formoterol Fumarate (Symbicort 160/4.5 Mcg Inh) 2 puff INH BID [facility] Chlorhexidine Gluconate (Chlorhexidine 2% Cloth) 3 pack TOPICAL DAILY@0400 [facility] Stop: 03/16/18 03:59 Last Admin: 03/15/18 03:42 Dose: Not Given Chlorhexidine Gluconate (Chlorhexidine 2% Cloth) 3 pack TOPICAL DAILY@0400 PRN PRN Reason: Extra cloth needed Stop: 03/16/18 03:59 Chlorhexidine Gluconate (Peridex 0.12% Oral Kit) 15 ml OROPHARYNG BID@0800, 2000 [facility] Last Admin: 03/15/18 10:18 Dose: Not Given Clonazepam (Klonopin) 0.5 mg PO Q12H PRN PRN Reason: ANXIETY Last Admin: 03/14/18 20:56 Dose: 0.5 mg Dextrose (D50w Vial) 50 ml IV.PUSH UNSCH PRN PRN Reason: PER HYPOGLYCEMIA PROTOCOL Enalaprilat (Vasotec Inj) 2.5 mg IV.PUSH Q6H PRN PRN Reason: SBP>160, DBP>90 Last Admin: 03/14/18 00:19 Dose: 2.5 mg Enoxaparin Sodium (Lovenox Inj) 40 mg SQ Q24H [facility] Last Admin: 03/14/18 00:19 Dose: 40 mg Glucagon (Glucagon Inj) 1 mg OTHER PRN PRN PRN Reason: for Hypoglycemia Protocol Sodium Chloride (Ns Inj) 1,000 mls @ 0 mls/hr IV.SIG BOLUS [facility] Last Infusion: 03/11/18 00:49 Dose: Infused Propofol (Diprivan 1000 Mg/100 Ml Inj) 1,000 mg in 100 mls @ 1.361 mls/hr IV.CONT TITRATE PRN; Protocol PRN Reason: Per Protocol Last Titration: 03/12/18 19:00 Dose: Infused Sodium Glycerophosphate 30 (mmol/ Sodium Chloride) 280 mls @ 42 mls/hr IV.SIG UNSCH PRN PRN Reason: For Phosphorus < 2.5 mg/dL Last Infusion: 03/12/18 14:22 Dose: Infused Potassium Chloride 20 meq/Magnesium Sulfate 2 gm/Dextrose/Sodium Chloride 1, 014 mls @ 500 mls/hr IV.SIG ONCE ONE Stop: 03/15/18 22:01 Insulin Aspart (Novolog Insulin Correctional Sugar Inj) 0 unit SQ Q6HR [facility]; Protocol Last Admin: 03/15/18 12:22 Dose: 2 unit Lactulose (Lactulose Liq) 30 ml PO DAILY PRN PRN Reason: SEVERE CONSITIPATION Lisinopril (Prinivil) 5 mg PO DAILY [facility] Last Admin: 03/15/18 10:19 Dose: 5 mg Miscellaneous Medication () 1 each OROPHARYNG 0000,0400,1200,1600 [facility] Last Admin: 03/15/18 18:23 Dose: Not Given Nicotine (Habitrol 14 Mg Patch.24 Hr) 1 patch T-DERMAL DAILY [facility] Last Admin: 03/15/18 10:17 Dose: 1 patch Ondansetron HCl (Zofran Inj) 4 mg IV.PUSH Q6H PRN PRN Reason: nausea/vomiting Pantoprazole Sodium (Protonix) 40 mg PO DAILY [facility] Last Admin: 03/15/18 10:17 Dose: 40 mg Patch Removal (Remove Old Patch) 1 each T-DERMAL Q7D [facility] Patch Removal (Remove Old Patch) 1 each T-DERMAL HS [facility] Last Admin: 03/14/18 20:45 Dose: Not Given Potassium Chloride (Klor-Con 10) 30 meq PO BID [facility] Senna/Docusate Sodium (Denia-Colace) 1 tab PO BID [facility] Last Admin: 03/15/18 10:19 Dose: Not Given Sennosides (Senokot) 17.2 mg PO Q12H PRN PRN Reason: Moderate Constipation Sodium Chloride (Ns Flush) 2 ml IV.FLUSH BID LAURIE Last Admin: 03/15/18 10:18 Dose: 2 ml Sodium Chloride (Ns Flush) 2 ml IV.FLUSH PRN PRN PRN Reason: FLUSH AFTER USING IV ACCESS Last Admin: 03/11/18 08:18 Dose: 2 ml Allergies/Adverse Reactions: Allergies Allergy/AdvReac Type Severity Reaction Status Date / Time No Known Allergies Allergy Unverified 03/10/18 21:53 Review of Systems All other systems reviewed negative except as stated in HPI Physical Exam Vital signs: Vital Signs 03/14/18 20:00 03/15/18 00:00 03/15/18 00:57 Temperature 97.6 F 97.9 F Pulse Rate 107 H 131 H 113 H Respiratory Rate 20 20 Blood Pressure 141/94 H 148/97 H Pulse Oximetry 91 L 94 L 03/15/18 04:00 03/15/18 04:26 03/15/18 08:00 Temperature 97.9 F 97.0 F L Pulse Rate 106 H 105 H 103 H Respiratory Rate 18 18 Blood Pressure 157/78 H 130/64 Pulse Oximetry 96 98 03/15/18 10:38 03/15/18 12:00 03/15/18 13:41 Temperature 97.1 F L Pulse Rate 115 H 110 H 86 Respiratory Rate 18 18 16 Blood Pressure 157/72 H Pulse Oximetry 96 03/15/18 13:51 03/15/18 16:00 Temperature 97.6 F Pulse Rate 101 H Respiratory Rate 18 Blood Pressure 143/72 H Pulse Oximetry 99 95 Intake & Output 03/14/18 03/15/18 03/15/18 18:59 06:59 18:59 Intake Total 600 / 600 480 / 480 960 / 960 Output Total 400 / 400 600 / 600 250 / 250 Balance 200 / 200 -120 / -120 710 / 710 Weight 85.6 kg 84.6 kg Intake: Oral 600 / 600 480 / 480 960 / 960 Output: Urine 400 / 400 600 / 600 250 / 250 Other: # Voids 3 Date of Last Bowel Movement 03/14/18 03/15/18 03/15/18 # Bowel Movements 2 0 2 Narrative: GENERAL: in NAD, SKIN: Warm and dry. HEAD: Atraumatic. Normocephalic. EYES: Pupils equal and round. No scleral icterus. ENT: No nasal bleeding or discharge. NECK: Trachea midline. No JVD. CARDIOVASCULAR: Regular rate and rhythm. RESPIRATORY: No accessory muscle use. GASTROINTESTINAL: Abdomen soft, non-tender, nondistended. MUSCULOSKELETAL: Extremities without clubbing, cyanosis, or edema. No obvious deformities. NEUROLOGICAL: Awake alert oriented x3 no aphasia, no ptosis noted. No facial asymmetry. Visual gonzalez full. Bilateral opacities noted on pupillary examination. Asymmetric pupils with greater than 1 mm difference, no temporal tenderness, strength 5 5 upper lower limbs no pronator drift, gait not assessed secondary to fall risk PSYCHIATRIC: Calm - Constitutional no acute distress - Routine HEENT Exam Head: Present: normocephalic - Urinary Catheter Management Indwelling Urethral Catheter Cath placed during this visit: yes Reason for continuing: Other continuation reason Insertion date: 03/10/18 Insertion time: 22:01 Objective Laboratory Results - last 24 hr 03/15/18 03/15/18 03/15/18 00:16 04:43 11:45 Sodium Potassium Chloride Carbon Dioxide Anion Gap BUN Creatinine Estimated GFR POC Glucose 149 H 157 H 172 H Random Glucose Calcium 03/15/18 03/15/18 14:24 18:28 Sodium 136 Potassium 3.0 L Chloride 95 L Carbon Dioxide 25.1 Anion Gap 16 H BUN 23 H Creatinine 1.13 Estimated GFR 65 L POC Glucose 147 H Random Glucose 129 H Calcium 8.4 L Review/Management - Diagnosis (1) Acute encephalopathy Code(s): G93.40 - Encephalopathy, unspecified Status: Acute Current Visit: Yes - Review/Management Plan: Anisocoria. May be physiologic/ congenital vs related to toxicity to the autonomic nervous system. no evidence of aneurysm or ptosis on exam Recommendation mri cspine reviewed- avoid excessive neck extension/flexion, heavy lifting above shoulders, myelopathic signs to watch for mri brain- negative p.t. follow exam
[2018-03-15] MEDS: Budesonide-Formoterol 160/4.5 MCG 6 GM Inhaler INH SCH ×2 (18:44→20:57)
[2018-03-15] MEDS ORDERED: Potassium Chloride Inj 20 MEQ, Magnesium Sulfate Inj 2 GM in Dextrose 5%/NaCl 0.45% Inj... IV.SIG ONE (20:00)
[2018-03-15] MEDS: clonazePAM 0.5 MG Tablet PO PRN (20:55)
[2018-03-15] MEDS ORDERED: QUEtiapine 100 MG Tablet PO ONE (22:45)
[2018-03-16] MEDS: Oral Hygiene Kit OROPHARYNG SCH ×4 (00:25→16:18)
[2018-03-16] MEDS: Insulin NovoLOG Aspart Correctional Sugar Inj SQ SCH ×4 (00:25→18:13)
[2018-03-16] MEDS: Chlorhexidine 0.12% Oral Kit 15 ML UDC OROPHARYNG SCH (08:21)
--- NOTE | 2018-03-16 08:27 | P.PNNEU ---
Subjective Subjective Comments: No cp, no dyspnea, no matta, no focal weakness, no vision loss. Apparently had some urinary retention Active Medications: Active Medications Acetaminophen (Tylenol) 650 mg PO Q6H PRN PRN Reason: PAIN 1-10 AND/OR FEVER >101F Hydrocodone Bitart/Acetaminophen ([place] 5/325) 1 tab PO Q6H PRN PRN Reason: PAIN SCALE 1 TO 5 Last Admin: 03/15/18 18:44 Dose: 1 tab Al Hydroxide/Mg Hydroxide (Milk Of Ernie Colon) 30 ml PO Q12H PRN PRN Reason: Mild Constipation Albuterol (Duoneb Neb (Prn)) 1 ampul NEB Q2HR NEB PRN PRN Reason: WHEEZING Last Admin: 03/15/18 10:37 Dose: 1 ampul Albuterol (Duoneb Neb (Milana)) 1 ampul NEB Q6HR NEB [facility] Last Admin: 03/16/18 04:05 Dose: 1 ampul Amlodipine Besylate (Norvasc) 10 mg PO DAILY [facility] Last Admin: 03/15/18 10:17 Dose: 10 mg Atorvastatin Calcium (Lipitor) 40 mg PO HS [facility] Last Admin: 03/15/18 20:55 Dose: 40 mg Bisacodyl (Dulcolax Supp) 10 mg RECTAL DAILY PRN PRN Reason: SEVERE CONSITIPATION Budesonide/Formoterol Fumarate (Symbicort 160/4.5 Mcg Inh) 2 puff INH BID [facility] Last Admin: 03/15/18 20:57 Dose: 2 puff Chlorhexidine Gluconate (Peridex 0.12% Oral Kit) 15 ml OROPHARYNG BID@0800, 2000 [facility] Last Admin: 03/16/18 08:21 Dose: Not Given Clonazepam (Klonopin) 0.5 mg PO Q12H PRN PRN Reason: ANXIETY Last Admin: 03/15/18 20:55 Dose: 0.5 mg Dextrose (D50w Vial) 50 ml IV.PUSH UNSCH PRN PRN Reason: PER HYPOGLYCEMIA PROTOCOL Enalaprilat (Vasotec Inj) 2.5 mg IV.PUSH Q6H PRN PRN Reason: SBP>160, DBP>90 Last Admin: 03/14/18 00:19 Dose: 2.5 mg Enoxaparin Sodium (Lovenox Inj) 40 mg SQ Q24H [facility] Last Admin: 03/14/18 00:19 Dose: 40 mg Glucagon (Glucagon Inj) 1 mg OTHER PRN PRN PRN Reason: for Hypoglycemia Protocol Sodium Chloride (Ns Inj) 1,000 mls @ 0 mls/hr IV.SIG BOLUS [facility] Last Infusion: 03/11/18 00:49 Dose: Infused Propofol (Diprivan 1000 Mg/100 Ml Inj) 1,000 mg in 100 mls @ 1.361 mls/hr IV.CONT TITRATE PRN; Protocol PRN Reason: Per Protocol Last Titration: 03/12/18 19:00 Dose: Infused Sodium Glycerophosphate 30 (mmol/ Sodium Chloride) 280 mls @ 42 mls/hr IV.SIG UNSCH PRN PRN Reason: For Phosphorus < 2.5 mg/dL Last Infusion: 03/12/18 14:22 Dose: Infused Insulin Aspart (Novolog Insulin Correctional Sugar Inj) 0 unit SQ Q6HR [facility]; Protocol Last Admin: 03/16/18 06:32 Dose: 2 unit Lactulose (Lactulose Liq) 30 ml PO DAILY PRN PRN Reason: SEVERE CONSITIPATION Lisinopril (Prinivil) 5 mg PO DAILY [facility] Last Admin: 03/15/18 10:19 Dose: 5 mg Miscellaneous Medication () 1 each OROPHARYNG 0000,0400,1200,1600 [facility] Last Admin: 03/16/18 04:35 Dose: Not Given Nicotine (Habitrol 14 Mg Patch.24 Hr) 1 patch T-DERMAL DAILY [facility] Last Admin: 03/15/18 10:17 Dose: 1 patch Ondansetron HCl (Zofran Inj) 4 mg IV.PUSH Q6H PRN PRN Reason: nausea/vomiting Pantoprazole Sodium (Protonix) 40 mg PO DAILY [facility] Last Admin: 03/15/18 10:17 Dose: 40 mg Patch Removal (Remove Old Patch) 1 each T-DERMAL Q7D [facility] Patch Removal (Remove Old Patch) 1 each T-DERMAL HS [facility] Last Admin: 03/15/18 20:57 Dose: Not Given Potassium Chloride (Klor-Con 10) 30 meq PO BID [facility] Last Admin: 03/15/18 20:54 Dose: 30 meq Senna/Docusate Sodium (Denia-Colace) 1 tab PO BID [facility] Last Admin: 03/15/18 20:56 Dose: Not Given Sennosides (Senokot) 17.2 mg PO Q12H PRN PRN Reason: Moderate Constipation Sodium Chloride (Ns Flush) 2 ml IV.FLUSH BID [facility] Last Admin: 03/15/18 20:56 Dose: 2 ml Sodium Chloride (Ns Flush) 2 ml IV.FLUSH PRN PRN PRN Reason: FLUSH AFTER USING IV ACCESS Last Admin: 03/11/18 08:18 Dose: 2 ml Allergies/Adverse Reactions: Allergies Allergy/AdvReac Type Severity Reaction Status Date / Time No Known Allergies Allergy Unverified 03/10/18 21:53 Review of Systems All other systems reviewed negative except as stated in HPI Physical Exam Vital signs: Vital Signs 03/15/18 10:38 03/15/18 12:00 03/15/18 13:41 Temperature 97.1 F L Pulse Rate 115 H 108 H 86 Respiratory Rate 18 18 16 Blood Pressure 157/72 H Pulse Oximetry 96 03/15/18 13:51 03/15/18 16:00 03/15/18 20:00 Temperature 97.6 F 97.9 F Pulse Rate 114 H 101 H Respiratory Rate 18 18 Blood Pressure 143/72 H 166/117 H Pulse Oximetry 99 95 94 L 03/15/18 20:17 03/15/18 20:20 03/15/18 20:33 Temperature Pulse Rate 100 H Respiratory Rate 18 20 Blood Pressure Pulse Oximetry 98 03/16/18 00:00 03/16/18 00:13 03/16/18 04:00 Temperature 97.4 F L 98 F Pulse Rate 106 H 108 H 87 Respiratory Rate 20 18 Blood Pressure 102/67 125/63 Pulse Oximetry 94 L 100 03/16/18 04:05 Temperature Pulse Rate 93 H Respiratory Rate 20 Blood Pressure Pulse Oximetry Intake & Output 03/15/18 03/16/18 03/16/18 18:59 06:59 18:59 Intake Total 960 / 960 1240 / 1240 Output Total 250 / 250 3100 / 3100 Balance 710 / 710 -1860 / -1860 Weight 83.8 kg Intake: IV 1000 / 1000 KCl Inj 20 MEQ Magnesium 1000 / 1000 Sulfate Inj 2 GM In D5W/1/2 NS Inj 1,000 ML @ 500 mls/hr IV. SIG ONCE ONE Rx#:[id number] Oral 960 / 960 240 / 240 Output: Urine 250 / 250 1550 / 1550 Urine Amount (Catheter) 1550 / 1550 Straight 1550 / 1550 Other: Date of Last Bowel Movement 03/15/18 03/16/18 # Bowel Movements 2 2 Narrative: GENERAL: in NAD, SKIN: Warm and dry. HEAD: Atraumatic. Normocephalic. EYES: Pupils equal and round. No scleral icterus. ENT: No nasal bleeding or discharge. NECK: Trachea midline. No JVD. CARDIOVASCULAR: Regular rate and rhythm. RESPIRATORY: No accessory muscle use. GASTROINTESTINAL: Abdomen soft, non-tender, nondistended. MUSCULOSKELETAL: Extremities without clubbing, cyanosis, or edema. No obvious deformities. NEUROLOGICAL: Awake alert oriented x3 no aphasia, no ptosis noted. No facial asymmetry. Visual gonzalez full. Bilateral opacities noted on pupillary examination. Asymmetric pupils with greater than 1 mm difference, no temporal tenderness, strength 5 5 upper lower limbs no pronator drift, gait not assessed secondary to fall risk PSYCHIATRIC: Calm - Constitutional no acute distress - Routine HEENT Exam Head: Present: normocephalic - Urinary Catheter Management Indwelling Urethral Catheter Cath placed during this visit: yes Reason for continuing: Other continuation reason Insertion date: 03/10/18 Insertion time: 22:01 Straight Cath placed during this visit: yes Reason for continuing: Not indwelling catheter Insertion date: 03/16/18 Insertion time: 00:00 Objective Laboratory Results - last 24 hr 03/15/18 03/15/18 03/15/18 11:45 14:24 18:28 Sodium 136 Potassium 3.0 L Chloride 95 L Carbon Dioxide 25.1 Anion Gap 16 H BUN 23 H Creatinine 1.13 Estimated GFR 65 L POC Glucose 172 H 147 H Random Glucose 129 H Calcium 8.4 L 03/16/18 03/16/18 00:12 05:53 Sodium Potassium Chloride Carbon Dioxide Anion Gap BUN Creatinine Estimated GFR POC Glucose 294 H 158 H Random Glucose Calcium Review/Management - Diagnosis (1) Acute encephalopathy Code(s): G93.40 - Encephalopathy, unspecified Status: Acute Current Visit: Yes - Review/Management Plan: Anisocoria. May be physiologic/ congenital vs related to toxicity to the autonomic nervous system. no evidence of aneurysm or ptosis on exam mri cspine reviewed- avoid excessive neck extension/flexion, heavy lifting above shoulders, myelopathic signs to watch for mri brain- negative Recommendation Neuro stable Tachycardic, mildly hypertensive. May be from mild dysautonomia secondary to toxic exposure. We will add metoprolol p.t. For gait Discharge planning once medically cleared can follow-up with us in the outpatient setting in 2-3 weeks
[2018-03-16] MEDS: amLODIPine 10 MG Tablet PO SCH (08:40)
[2018-03-16] MEDS: Lisinopril 5 MG Tablet PO SCH (08:40)
[2018-03-16] MEDS: Senna/Docusate Sodium 8.6/50 MG Tablet PO SCH (08:41)
[2018-03-16] MEDS: Budesonide-Formoterol 160/4.5 MCG 6 GM Inhaler INH SCH (08:42)
[2018-03-16 08:55] LABS: Calcium 8.2 mg/dL (8.5-10.1); Carbon Dioxide 27.1 meq/L (21.0-32.0)
[2018-03-16] MEDS ORDERED: Metoprolol Tartrate 25 MG Tablet PO SCH (09:00)
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
[2018-03-16] MEDS ORDERED: Lidocaine 5% Patch T-DERMAL SCH (13:15)
[2018-03-16] MEDS ORDERED: Potassium Chlor 20 mEq Premix 20 MEQ/100 ML PIGGYBACK IV.SIG ONE (13:30)
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
[2018-03-16 17:39] VITALS: O2SAT 93
[2018-03-16 18:06] VITALS: BP 150/74; PULSE 110; RESP 18; TEMP 97.2
--- NOTE | 2018-03-19 18:05 | ECG ---
Date Performed: 03/15/2018 Time Performed: 16:24:05 PTAGE: 67 years EKG: SINUS TACHYCARDIA WITH OCCASIONAL VENTRICULAR PREMATURE COMPLEXES WITH OCCASIONAL SUPRAVENT RICULAR PREMATURE COMPLEXES POSSIBLE LEFT ATRIAL ENLARGEMENT MARKED RIGHT AXIS DEVIATION RIGHT BUNDLE BRANCH BLOCK INFERIOR MYOCARDIAL INFARCTION , OF INDETERMINATE AGE ABNORMAL ECG PREVIOUS TRACING : 03/11/2018 09.04 Since the previous tracing, no significant change noted DOCTOR: Alexander Darden Interpretating Date/Time 03/19/2018 18:05:02
== END 2018-03-16 19:17 | disposition home or self-care (01) ==
LOC: NEPE 21:44 → NEDA 23:33 → EDBD 23:33 → HIMC 03-11 01:25 → N04 03-14 12:59
PROVIDERS: ADMIT Hospitalist; ATTEND Hospitalist